=== PATIENT | male | born 1970 | race Two or more races ===

== ENCOUNTER 2023-05-20 00:44 | Emergency (ER) | payer OTHER ==
[~2023-05-20] VITALS: Ht 175.3 cm; Wt 114.3 kg
[2023-05-20 02:02] VITALS: BP 134/87; TEMP 98.5; O2SAT 97
[2023-05-20] MEDS ORDERED: CYCL10TA9 PO (02:16)
[2023-05-20] MEDS ORDERED: DIAZEPAM 5 MG TABLET ONE (02:17)
[2023-05-20] MEDS ORDERED: CYCLOBENZAPRINE 10 MG TABLET ONE (02:17)
[2023-05-20] MEDS ORDERED: KETOROLAC TROMETHAMINE INJ 30 MG/ML VIAL ONE (02:17)
[2023-05-20] MEDS ORDERED: KETOROLAC TROMETHAMINE INJ 60 MG/2 ML VIAL IM ONE (02:30)
[2023-05-20] MEDS ORDERED: CYCLOBENZAPRINE 10 MG TABLET PO ONE (02:30)
[2023-05-20] MEDS ORDERED: DIAZEPAM 5 MG TABLET PO ONE (02:30)
== END 2023-05-20 03:43 | disposition home or self-care (01) ==
LOC: ER 00:52
DX: M79.652 Pain in left thigh (principal); Z98.890 Other specified postprocedural states; Z88.0 Allergy status to penicillin
CPT/HCPCS: 99283; 96372; J1885